=== PATIENT | male | born 1975 ===

== ENCOUNTER → 2021-07-04 | Outpatient (CLI) | payer OTHER ==
[2021-07-04 16:49] LABS: BASOPHILS ABSOLUTE AUTO 0.01 K/mm3 (0.00-0.23); BASOPHILS PERCENT AUTO 0 % (0-2); EOSINOPHILS ABSOLUTE AUTO 0.04 K/mm3 (0.00-0.68); EOSINOPHILS PERCENT AUTO 1 % (0-6); Hematocrit 38.7 % (37.0-53.0); Hemoglobin 13.7 g/dL (13.5-17.5); IMMATURE GRAN ABSOLUTE AUTO 0.01 K/mm3 (0.00-0.10); IMMATURE GRAN PERCENT AUTO 0 % (0-1); LYMPHOCYTES ABSOLUTE AUTO 1.49 K/mm3 (0.84-5.20); LYMPHOCYTES PERCENT AUTO 36 % (21-46); MONOCYTES ABSOLUTE AUTO 0.28 K/mm3 (0.16-1.47); MONOCYTES PERCENT AUTO 7 % (4-13); Mean Corpuscular HGB 32.9 pg (26.0-34.0); Mean Corpuscular HGB Conc 35.4 g/dL (31.5-36.5); Mean Corpuscular Volume 93 fL (80-100); NEUTROPHILS ABSOLUTE AUTO 2.32 K/mm3 (1.96-9.15); NEUTROPHILS PERCENT AUTO 56 % (41-73); RDW Coefficient Variation 13.4 % (11.7-14.2); Red Blood Cell Count 4.16 M/mm3 (4.30-5.90); White Blood Cell Count 4.15 K/mm3 (4.00-11.30)
[2021-07-04 17:01] LABS: Alanine Aminotransfer (ALT/SGP 258 U/L (12-78); Albumin, Blood 3.1 g/dL (3.4-5.0); Albumin/Globulin Ratio 0.8 (0.8-1.8); Alk Phos 80 U/L (40-126); Anion Gap 9 mmol/L (6-16); Aspartate Aminotrans (AST/SGOT 371 U/L (12-37); Bilirubin, Total 2.2 mg/dL (0.1-1.0); Blood Urea Nitrogen 10 mg/dL (8-24); Bun/Creatinine Ratio 9.6 (12.0-20.0); CO2, Blood 22 mmol/L (21-32); Calcium, Blood 7.9 mg/dL (8.5-10.1); Chloride, Blood 102 mmol/L (98-108); Creatinine, Blood 1.04 mg/dL (0.60-1.20); Globulin, Blood 4.1 g/dL (2.2-4.0); Glomerular Filtration Rate >60 (60-); Glucose, Blood 96 mg/dL (70-99); Sodium, Blood 133 mmol/L (136-145); Total Protein, Blood 7.2 g/dL (6.4-8.2)
[2021-07-04 17:12] LABS: Mean Platelet Volume 10.3 fL (9.1-12.4); Platelet Count 83 K/mm3 (150-400)
== END | disposition home or self-care (01) ==
LOC: LAB 14:16 → LAB SHORT 14:16
PROVIDERS: Physician Assistant Surgical
DX: U07.1 COVID-19 (principal)
CPT/HCPCS: 80053; 85025; 85379

== ENCOUNTER 2023-01-08 18:58 | Inpatient (IN) | payer OTHER ==
[~2023-01-08] VITALS: Ht 175.3 cm; Wt 184.0 kg
[2023-01-08] MEDS ORDERED: METOPROLOL TART25 MG PO (19:25)
[2023-01-08] MEDS ORDERED: FUROSEMIDE20 MG PO (19:25)
[2023-01-08] MEDS ORDERED: CLON.2 (19:25)
[2023-01-08] MEDS ORDERED: METFORMIN HCL500 M2 PO (19:26)
[2023-01-08] MEDS ORDERED: Lisinopril2.5 MG PO (19:26)
[2023-01-08] MEDS ORDERED: KLOR-CON 1010 ME3 PO (19:26)
[2023-01-08 19:46] LABS: Hematocrit 44.5 % (37.0-53.0); Hemoglobin 13.9 g/dL (13.5-17.5); Mean Corpuscular HGB 29.9 pg (26.0-34.0); Mean Corpuscular HGB Conc 31.2 g/dL (31.5-36.5); Mean Corpuscular Volume 96 fL (80-100); Mean Platelet Volume 10.3 fL (9.1-12.4); NRBC ABSOLUTE 0.06 K/mm3 (0.00-0.02); NRBC Auto 0.4 /100 WBC (0.0-0.2); Platelet Count 144 K/mm3 (150-400); RDW Coefficient Variation 14.5 % (11.7-14.2); RDW Standard Deviation 50.2 fL (35.1-46.3); Red Blood Cell Count 4.65 M/mm3 (4.30-5.90)
[2023-01-08 19:55] LABS: Base Excess Venous -22.7 mmol/L; Bicarbonate Venous 8.8 mmol/L (24.0-30.0); PCO2 Venous 39.7 mmHg (38-42); pH Blood Venous 6.97 (7.34-7.37)
[2023-01-08 20:06] LABS: Albumin, Blood 2.5 g/dL (3.4-5.0); Albumin/Globulin Ratio 0.6 (0.8-1.8); Bilirubin, Total 1.9 mg/dL (0.1-1.0); Bun/Creatinine Ratio 7.4 (12.0-20.0); Calcium, Blood 8.4 mg/dL (8.5-10.1); Creatinine, Blood 3.1 mg/dL (0.60-1.20); Globulin, Blood 4.2 g/dL (2.2-4.0); Potassium, Blood 3.9 mmol/L (3.5-5.5); Total Protein, Blood 6.7 g/dL (6.4-8.2)
[2023-01-08 20:07] LABS: International Normalized Ratio 1.51; Prothrombin Time Results 15.4 Sec (9.7-11.5)
[2023-01-08 20:31] LABS: Influenza A, PCR NEGATIVE (NEGATIVE); Influenza B, PCR NEGATIVE (NEGATIVE); Resp Syncytial Virus, PCR NEGATIVE (NEGATIVE); SARS-Cov-2 (COVID-19) PCR, MMC NEGATIVE (NEGATIVE)
[2023-01-08 20:32] LABS: BAND PERCENT MAN 28 % (0-8); BASOPHILS PERCENT MAN 0 % (0-2); EOSINOPHILS PERCENT MAN 0 % (0-6); LYMPHOCYTES ABSOLUTE MAN 2.31 K/mm3 (0.84-5.20); LYMPHOCYTES PERCENT MAN 15 % (21-46); METAMYELOCYTE ABSOLUTE MAN 0.61 K/mm3 (0.00-0.00); METAMYELOCYTE PERCENT MAN 4 % (0-0); MONOCYTES ABSOLUTE MAN 0.92 K/mm3 (0.16-1.47); MONOCYTES PERCENT MAN 6 % (4-13); MYELOCYTE PERCENT MAN 2 % (0-0); NEUTROPHILS ABSOLUTE MAN 11.24 K/mm3 (1.96-9.15); SEG NEUTROPHILS PERCENT MAN 45 % (41-73); TOTAL CELLS COUNTED 100
[2023-01-09 00:04] LABS: C-REACTIVE PROTEIN, EXT RANGE 4.77 mg/dL (0.000-0.300)
[2023-01-09 00:05] LABS: Calcium, Ionized (POC) 0.98 mmol/L (1.10-1.46); Chloride (POC) 102 mmol/L (98-108); Creatinine (POC) 3.5 mg/dL (0.8-1.3); Glucose (ISTAT POC) 129 mg/dL (70-99); Hemoglobin (POC) 11.9 g/dL (13.5-17.5); Potassium (POC) 3.8 mmol/L (3.5-5.5); Sodium (POC) 135 mmol/L (135-148); Total CO2 (POC) 13 mmol/L (21-32)
[2023-01-09 01:21] LABS: Source, Urine Clean Catch
[2023-01-09 01:23] LABS: Blood, Urine 5+ (Neg); Glucose Qualitative, Urine Neg (Neg); Ketones, Urine Neg (Neg); Leukocyte Esterase, Urine 1+ (Neg); Nitrite, Urine Neg (Neg); Protein, Urine 3+ (Neg); Urobilinogen, Urine 1+ (Normal)
[2023-01-09 01:35] LABS: U Amphetamine Screen Not Detected; U Barbituate Screen Not Detected; U Benzodiazapine Screen Not Detected; U Buprenorphine Screen Not Detected; U Cannabinoids Screen Not Detected; U Cocaine Screen Not Detected; U Methadone Screen Not Detected; U Methamphetamine Screen Not Detected; U Opiates Screen Not Detected; U Oxycodone Screen Not Detected; U Phencyclidine Screen Not Detected; U Propoxyphene Screen Not Detected
[2023-01-09 01:36] LABS: Appearance, Urine Cloudy (Clear); Bilirubin, Urine 1+ (Neg); Color, Urine Yellow (P-Yellow)
[2023-01-09 01:38] LABS: Bacteria Mod /hpf; Squamous Epithelial Cells Few /hpf (Few)
[2023-01-09 01:56] LABS: PCO2 Arterial 54.5 mmHg (35-45); PO2 Arterial 119 mmHg (80-100); pH Blood Arterial 6.93 (7.35-7.45)
[2023-01-09 03:41] LABS: Hematocrit 36.6 % (37.0-53.0); Hemoglobin 11.5 g/dL (13.5-17.5); Mean Corpuscular HGB 30.3 pg (26.0-34.0); Mean Corpuscular HGB Conc 31.4 g/dL (31.5-36.5); Mean Corpuscular Volume 97 fL (80-100); Mean Platelet Volume 10.1 fL (9.1-12.4); NRBC ABSOLUTE 0.23 K/mm3 (0.00-0.02); NRBC Auto 1.1 /100 WBC (0.0-0.2); Platelet Count 108 K/mm3 (150-400); RDW Coefficient Variation 14.3 % (11.7-14.2); RDW Standard Deviation 50.7 fL (35.1-46.3); Red Blood Cell Count 3.79 M/mm3 (4.30-5.90); White Blood Cell Count 20.79 K/mm3 (4.00-11.30)
[2023-01-09 04:23] LABS: Albumin, Blood 1.9 g/dL (3.4-5.0); Albumin/Globulin Ratio 0.5 (0.8-1.8); Bilirubin, Total 1.5 mg/dL (0.1-1.0); Bun/Creatinine Ratio 8.5 (12.0-20.0); Calcium, Blood 6.7 mg/dL (8.5-10.1); Creatinine, Blood 3.19 mg/dL (0.60-1.20); Globulin, Blood 3.5 g/dL (2.2-4.0); Total Protein, Blood 5.4 g/dL (6.4-8.2)
[2023-01-09 04:40] LABS: Creatine Kinase MB 141.1 ng/mL (0.0-3.6); Creatine Kinase MB Index 2.5 (0.0-4.0)
[2023-01-09 05:17] LABS: BAND PERCENT MAN 28 % (0-8); BASOPHILS PERCENT MAN 0 % (0-2); EOSINOPHILS PERCENT MAN 0 % (0-6); LYMPHOCYTES ABSOLUTE MAN 1.24 K/mm3 (0.84-5.20); LYMPHOCYTES PERCENT MAN 6 % (21-46); METAMYELOCYTE ABSOLUTE MAN 1.24 K/mm3 (0.00-0.00); METAMYELOCYTE PERCENT MAN 6 % (0-0); MONOCYTES ABSOLUTE MAN 1.03 K/mm3 (0.16-1.47); MONOCYTES PERCENT MAN 5 % (4-13); NEUTROPHILS ABSOLUTE MAN 17.25 K/mm3 (1.96-9.15); SEG NEUTROPHILS PERCENT MAN 55 % (41-73); TOTAL CELLS COUNTED 100
--- NOTE | 2023-01-09 06:45 | NUR ---
SHIFT SUMMARY REMAINS INTUBATED- AC/VC 22/550/10/90%. SEDATED WITH KETAMINE AT 1MG/KG/HR. NO SPONTANEOUS MOVEMENT NOTED- BILATERAL SOFT WRIST RESTRAINTS REMOVED AT THIS TIME. WITHDRAWS EXTREMITIES TO NOXIOUS STIMULI. MONITOR SHOWS ST, RATE 110-120. ATTEMPTING TO MAINTAIN MAP >65 WITH PRESSORS- LEVOPHED INFUSING AT 30MCG/MIN, VASOPRESSIN AT 0.04UNITS/MIN, EPINEPHRINE AT 25MCG/MIN, AND NEOSYNEPHRINE NOW AT 150MCG/MIN. BICARB GTT AT 125MLS/HR. 1L NS IV BOLUS GIVEN PER MD. ALBUMIN 25GMS GIVEN. RIGHT IJ CENTRAL LINE NOTED. LEFT FEMORAL ARTERIAL LINE PLACED THIS AM. PT DOES NOT HAVE AN OG AT THIS TIME. OWENS PATENT AND DRAINING TO GRAVITY- 450ML ZIA URINE. FAMILY WAS AT BEDSIDE WHEN PT FIRST ARRIVED TO ICU- LEFT AT APPROXIMATELY 0430. ATTEMPTS TO CALL AND MOTHER FOR UPDATE ON CONDITION THIS AM WERE UNSUCCESSFUL D/T INCORRECT PHONE NUMBERS. WILL REPORT TO ONCOMING RN WHEN AVAILABLE.
[2023-01-09 08:19] LABS: PCO2 Arterial 44.4 mmHg (35-45); PO2 Arterial 90.3 mmHg (80-100); pH Blood Arterial 7.01 (7.35-7.45)
[2023-01-09 08:28] LABS: Hematocrit 32.9 % (37.0-53.0); Hemoglobin 10.6 g/dL (13.5-17.5); Mean Corpuscular HGB 30.5 pg (26.0-34.0); Mean Corpuscular HGB Conc 32.2 g/dL (31.5-36.5); Mean Corpuscular Volume 95 fL (80-100); Mean Platelet Volume 9.8 fL (9.1-12.4); NRBC ABSOLUTE 0.19 K/mm3 (0.00-0.02); NRBC Auto 0.8 /100 WBC (0.0-0.2); Platelet Count 100 K/mm3 (150-400); RDW Coefficient Variation 14.3 % (11.7-14.2); RDW Standard Deviation 49.5 fL (35.1-46.3); Red Blood Cell Count 3.47 M/mm3 (4.30-5.90); White Blood Cell Count 24.64 K/mm3 (4.00-11.30)
[2023-01-09 08:50] LABS: Albumin/Globulin Ratio 0.6 (0.8-1.8); Bun/Creatinine Ratio 7.3 (12.0-20.0); Calcium, Blood 6.7 mg/dL (8.5-10.1); Creatinine, Blood 3.58 mg/dL (0.60-1.20); Globulin, Blood 3.2 g/dL (2.2-4.0); Potassium, Blood 3.9 mmol/L (3.5-5.5); Total Protein, Blood 5.2 g/dL (6.4-8.2)
--- NOTE | 2023-01-09 09:15 | NUR ---
PT INTUBATED AND SEDATED WITH KETAMINE. ON MULTIPLE VASOPRESSORS, SEE FLOWSHEET. A-LINE TO L GROIN. NO RESPONSE TO NOXIOUS STIMULI. OPENS EYE'S SPONT. DR. HERNANDEZ IN AT CHANGE OF SHIFT AND IN CONTACT WITH ORTHOPEDIC SURGEON RIGHT AWAY. DR. VINCENT, DR. TERRELL, AND DR. MONTOYA AT BEDSIDE TO TALK WITH FAMILY ABOUT SURGICAL OPTIONS. PALLIATIVE CARE AND ASSEMBLER EQUIPMENT HERE WELL TO SUPPORT FAMILY. PT HAS DARK PURPLE BLISTERS TO RLE. SOME OF THE BLISTERS HAVE POPPED AND WERE FILLED WITH BLOOD. LEG HAS EVIDENCE OF CHRONIC VASC ISSUES, WITH RAISED DRY FLAKING SKIN AND DISCOLORATION. SEE PHOTOS. DOPPLER PULSES.
[2023-01-09 09:42] LABS: BAND PERCENT MAN 60 % (0-8); BASOPHILS PERCENT MAN 0 % (0-2); EOSINOPHILS PERCENT MAN 0 % (0-6); LYMPHOCYTES ABSOLUTE MAN 0.98 K/mm3 (0.84-5.20); LYMPHOCYTES PERCENT MAN 4 % (21-46); METAMYELOCYTE ABSOLUTE MAN 1.97 K/mm3 (0.00-0.00); METAMYELOCYTE PERCENT MAN 8 % (0-0); MONOCYTES ABSOLUTE MAN 0.73 K/mm3 (0.16-1.47); MONOCYTES PERCENT MAN 3 % (4-13); NEUTROPHILS ABSOLUTE MAN 20.94 K/mm3 (1.96-9.15); SEG NEUTROPHILS PERCENT MAN 25 % (41-73); TOTAL CELLS COUNTED 100
[2023-01-09] MEDS ORDERED: ZESTRIL40 M1 PO (10:14)
--- NOTE | 2023-01-09 10:59 | NUR ---
"Spiritual Care | Nurse Request Pt. is a recent admit with a poor health prognosis. Family members are unsettled by the speed of the Pt. decline, and the grim diagnosis. Listen to the family with empathy. Facilitated a consult with Palliative Care nurse Jalyn. After consult it was agreed to allow family members to arrive before a surgery or comfort care decisiion is made. This incident response lead has been rotating family members bedside, and prayed with family and Pt. Family verbalized gratitude for the spiritual care visit. Will continue to monitor and support the family."
--- NOTE | 2023-01-09 15:02 | NUR ---
pt pressures dropping and sats dropping family at bedside placed on comfort care pt terminal. pt left on vent and medications for now. They have had great loss this past year. Chaplian at bedside prayer given will monitor pt for signs of suffering. Minmal conversation with family they are to tramatized.
--- NOTE | 2023-01-09 15:12 | NUR ---
"Spiritual Care| Nurse Request Pt. is not responsive, and BP is declining. Many family memebers are present. Some display evidence of grief, some display evidence of anger. Listen with empathy and then pray with the family and Pt. After prayer facilitate family life review. Stories of the Pts. life perceived to bring comfort to the family. Will remain available to family."
--- NOTE | 2023-01-09 16:36 | NUR ---
PT'S HAS DECIDED THAT WHEN CURRENT BAGS OF VASOPRESSORS ARE COMPLETE THAT SHE WOULD LIKE THEM TURNED OFF AND FOLLOW COMFORT CARE ORDERS FROM THERE ALLOWING PT TO PASS COMFORTABLEY. DR. HERNANDEZ AWARE.
--- NOTE | 2023-01-09 18:11 | NUR ---
SUMMARY PT WAS ON MAX SUPPORT OF PRESSORS TODAY. PT WAS GIVEN VERY POOR PROGNOSIS THIS AM BY SURGEONS. PT'S AND FAMILY DECIDED TO MAKE PT COMFORT CARE THIS EVENING. REMAINED ON VENTILATOR PER FAMILY BUT ALL PRESSORS TURNED OFF AND PT PASSED QUICKLY. RECORDER GRAVITY PROSPECTING PRESENT FOR FAMILY SUPPORT. OFFERING SUPPORT AND ANSWERING ANY QUESTIONS THE FAMILY HAS.
--- NOTE | 2023-01-09 18:11 | NUR ---
Spiritual Care EOL - [facility] Pt. passed approx 17:54. Prayed with family. Gave EOL education to Spouse and Pts. mother. Family has chosen [facility] in [place] for services. Family verbalized gratitude to the entire staff for their support on this difficult day.
--- NOTE | 2023-01-09 18:20 | NUR ---
pt , theputic time with family. chaplian at bedside. given supportive packet will get fingerprints for children. Will follow up with .
== END 2023-01-09 17:54 | DRG 871 ==
LOC: ER 18:58 → ICUW 01-09 01:02
PROVIDERS: Emergency Medicine; Internal Medicine Critical Care Medicine; Student in an Organized Health Care Education/Training Program; ADMIT Internal Medicine
PROC: 3E03329 Introduction of Other Anti-infective into Peripheral Vein, Percutaneous Approach (ICD-10-PCS; principal; 2023-01-09)
PROC: 3E033XZ Introduction of Vasopressor into Peripheral Vein, Percutaneous Approach (ICD-10-PCS; 2023-01-09)
PROC: 0BH18EZ Insertion of Endotracheal Airway into Trachea, Via Natural or Artificial Opening Endoscopic (ICD-10-PCS; 2023-01-09)
PROC: 02HV33Z Insertion of Infusion Device into Superior Vena Cava, Percutaneous Approach (ICD-10-PCS; 2023-01-09)
PROC: 04HY32Z Insertion of Monitoring Device into Lower Artery, Percutaneous Approach (ICD-10-PCS; 2023-01-09)
PROC: 5A1935Z Respiratory Ventilation, Less than 24 Consecutive Hours (ICD-10-PCS; 2023-01-09)
PROC: 4A133B1 Monitoring of Arterial Pressure, Peripheral, Percutaneous Approach (ICD-10-PCS; 2023-01-09)
PROC: 4A133J1 Monitoring of Arterial Pulse, Peripheral, Percutaneous Approach (ICD-10-PCS; 2023-01-09)
PROC: 0T9B70Z Drainage of Bladder with Drainage Device, Via Natural or Artificial Opening (ICD-10-PCS; 2023-01-09)
DX: A41.9 Sepsis, unspecified organism (principal); G92.8 Other toxic encephalopathy; J96.01 Acute respiratory failure with hypoxia; R65.21 Severe sepsis with septic shock; M72.6 Necrotizing fasciitis; J96.02 Acute respiratory failure with hypercapnia; E87.20 Acidosis, unspecified; N17.9 Acute kidney failure, unspecified; M62.82 Rhabdomyolysis; J98.11 Atelectasis; E87.1 Hypo-osmolality and hyponatremia; Z68.43 Body mass index [BMI] 50.0-59.9, adult; Z51.5 Encounter for palliative care; Z20.822 Contact with and (suspected) exposure to COVID-19; Z78.1 Physical restraint status; I10 Essential (primary) hypertension; I87.2 Venous insufficiency (chronic) (peripheral); E83.51 Hypocalcemia; E87.70 Fluid overload, unspecified; R73.03 Prediabetes; E66.9 Obesity, unspecified; Z88.8 Allergy status to other drugs, medicaments and biological substances; Z79.84 Long term (current) use of oral hypoglycemic drugs; Z79.899 Other long term (current) drug therapy
CPT/HCPCS: 0241U; 31500; 36415; 36556; 36600; 36620; 51702; 71045; 71260; 73701; 74177; 80047; 80053; 81001; 82330; 82533; 82550; 82553; 82803; 82947; 83605; 83690; 83880; 84484; 85014; 85025; 85379; 85610; 85730; 86140; 86850; 86900; 86901; 87040; 87070; 87086; 87205; 93005; 93010; 93306; 94002; 96361-59; 96365-59; 96366-59; 96368; 96375-59; 96376-59; 99291-25; 99292; C1751; C9113; J0171; J0610; J1610; J1720; J2185; J2270; J2370; J2405; J2543; J3370; J7030; J7040; J7042; J7050; J7060; J7070; J7120; J7799; P9047; Q9967